=== PATIENT | male | born 1940 | race Caucasian/White ===

== ENCOUNTER 2017-04-06 18:37 | Inpatient (IN) | payer OTHER, BC ==
[~2017-04-06] VITALS: Ht 170.2 cm; Wt 85.0 kg
[2017-04-06 19:39] LABS: BASOPHIL % 0.3 % (0-2); PLATELET COUNT 151 x10^3mcL (130-400); RED CELL DISTRIBUTION WIDTH 13.9 % (11.5-14.5)
[2017-04-06 19:42] LABS: CALCIUM 8.7 mg/dL (8.5-10.1); CARBON DIOXIDE 25.3 mmol/L (21-32); CHLORIDE SERUM 106 mmol/L (98-107); CREATININE SERUM 1.2 mg/dL (0.7-1.3); GLUCOSE SERUM 130 mg/dL (74-106); POTASSIUM SERUM 3.6 mmol/L (3.5-5.1); SODIUM SERUM 145 mmol/L (136-145)
[2017-04-06 19:44] LABS: MAGNESIUM 2.1 mg/dL (1.8-2.4)
[2017-04-06 19:49] LABS: ALBUMIN 3.9 g/dL (3.4-5.0); ALKALINE PHOSPHATASE 57 U/L (46-116); ALT/SGPT 66 U/L (16-63); AST/SGOT 30 U/L (15-37); TOTAL PROTEIN, SERUM 6.4 g/dL (6.4-8.2)
[2017-04-06 20:48] LABS: UA SPECIFIC GRAVITY >=1.030 (1.005-1.035); microscopic required? YES; urine erythrocyte NEGATIVE (NEGATIVE)
[2017-04-06 20:57] LABS: AMPHETAMINE QUAL UR NONE DETECTED (NEG <=1000)
[2017-04-06] MEDS ORDERED: FLO4 PO (21:47)
[2017-04-06] MEDS ORDERED: SIMVASTATIN20 M1 PO (21:48)
[2017-04-06] MEDS ORDERED: FINASTERIDE5 M1 PO (21:48)
[2017-04-06] MEDS ORDERED: DITROPAN XL5 MG PO (21:48)
[2017-04-06] MEDS ORDERED: GOOD SENSE ASPI81 M3 PO (21:49)
[2017-04-06] MEDS ORDERED: NORCO 10-325 T1 EACH PO (21:49)
[2017-04-06 22:48] VITALS: BP 178/88
[2017-04-06 22:56] LABS: CHOLESTEROL/HDL RATIO 3.6; PHOSPHOROUS 2.8 mg/dL (2.5-4.9)
[2017-04-06 23:05] LABS: FREE T4 0.8 ng/dL (0.76-1.46); FREE THYROXINE INDEX 1.9 ug/dL (1.4-4.5); T3 TOTAL 0.72 ng/mL; T4(THYROXINE) 5.4 ug/dL (4.7-13.3)
[2017-04-06 23:10] VITALS: BP 189/94
[2017-04-07 02:48] VITALS: BP 152/76
[2017-04-07 06:32] VITALS: BP 145/80
[2017-04-07 07:47] LABS: BASOPHIL % 0.2 % (0-2); PLATELET COUNT 137 x10^3mcL (130-400); RED CELL DISTRIBUTION WIDTH 14.1 % (11.5-14.5)
[2017-04-07 08:42] VITALS: Ht 170.2 cm; Wt 85.0 kg
[2017-04-07 08:42] LABS: CALCIUM 8.3 mg/dL (8.5-10.1); CARBON DIOXIDE 28.6 mmol/L (21-32); CHLORIDE SERUM 107 mmol/L (98-107); CREATININE SERUM 0.9 mg/dL (0.7-1.3); GLUCOSE SERUM 104 mg/dL (74-106); POTASSIUM SERUM 3.8 mmol/L (3.5-5.1); SODIUM SERUM 144 mmol/L (136-145)
[2017-04-07 09:29] VITALS: BP 157/86
[2017-04-07 16:52] VITALS: BP 138/77
[2017-04-07 21:46] VITALS: BP 118/79
[2017-04-08 06:20] LABS: BASOPHIL % 0.9 % (0-2)
[2017-04-08 06:22] VITALS: BP 118/68
[2017-04-08 06:37] LABS: CALCIUM 8.2 mg/dL (8.5-10.1); CARBON DIOXIDE 30.8 mmol/L (21-32); CHLORIDE SERUM 107 mmol/L (98-107); CREATININE SERUM 0.9 mg/dL (0.7-1.3); GLUCOSE SERUM 102 mg/dL (74-106); PHOSPHOROUS 2.9 mg/dL (2.5-4.9); POTASSIUM SERUM 4.4 mmol/L (3.5-5.1); SODIUM SERUM 144 mmol/L (136-145)
[2017-04-08 10:55] VITALS: BP 141/84
[2017-04-08 11:12] LABS: PLATELET COUNT 100 x10^3mcL (130-400)
[2017-04-08] MEDS ORDERED: DEPAKOTE ER500 MG PO (13:17)
[2017-04-08] MEDS ORDERED: DEPAKOTE500 MG PO (13:30)
[2017-04-08 14:29] VITALS: BP 146/84
[2017-04-08 15:58] VITALS: BP 146/84
== END 2017-04-08 17:36 | DRG 100 ==
LOC: ED 18:37 → DU 21:28 → MU 04-07 11:00
PROVIDERS: Emergency Medicine; Family Medicine
DX: G40.909 Epilepsy, unspecified, not intractable, without status epilepticus (principal); N17.0 Acute kidney failure with tubular necrosis; S00.532A Contusion of oral cavity, initial encounter; I10 Essential (primary) hypertension; G62.9 Polyneuropathy, unspecified; R32 Unspecified urinary incontinence; E78.2 Mixed hyperlipidemia; Z68.31 Body mass index [BMI] 31.0-31.9, adult; Z87.891 Personal history of nicotine dependence; Z86.73 Personal history of transient ischemic attack (TIA), and cerebral infarction without residual deficits; Z91.81 History of falling; W50.3XXA Accidental bite by another person, initial encounter; Y92.009 Unspecified place in unspecified non-institutional (private) residence as the place of occurrence of the external cause
CPT/HCPCS: 83880; 84439; 97110-GP; 97116-GP; 97530-GP; G0480; J0360; J1956; J2060; J2310; J2405; J7030; Q0092

== ENCOUNTER 2017-06-13 04:57 | Inpatient (IN) | payer OTHER, BC ==
[~2017-06-13] VITALS: Ht 170.2 cm; Wt 90.3 kg
[~2017-06-13 04:57] MED LIST: DEPAKOTE ER500 MG PO; DEPAKOTE500 MG PO; DITROPAN XL5 MG PO; FINASTERIDE5 M1 PO; FLO4 PO; GOOD SENSE ASPI81 M3 PO; NORCO 10-325 T1 EACH PO; SIMVASTATIN20 M1 PO
[2017-06-13 05:05] VITALS: Ht 170.2 cm; Wt 90.3 kg
[2017-06-13 06:16] LABS: CALCIUM 8.1 mg/dL (8.5-10.1); CARBON DIOXIDE 30.5 mmol/L (21-32); CHLORIDE SERUM 105 mmol/L (98-107); CREATININE SERUM 0.9 mg/dL (0.7-1.3); GLUCOSE SERUM 101 mg/dL (74-106); POTASSIUM SERUM 4.2 mmol/L (3.5-5.1); SODIUM SERUM 141 mmol/L (136-145)
[2017-06-13 06:19] LABS: BASOPHIL % 0.2 % (0-2); RED CELL DISTRIBUTION WIDTH 13.7 % (11.5-14.5)
[2017-06-13 06:20] LABS: ALKALINE PHOSPHATASE 65 U/L (46-116); ALT/SGPT 39 U/L (16-63); AST/SGOT 20 U/L (15-37); BILIRUBIN TOTAL 0.79 mg/dL (0.20-1.00); PLATELET COUNT 129 x10^3mcL (130-400)
[2017-06-13 06:20] LABS: UA SPECIFIC GRAVITY 1.015 (1.005-1.035); microscopic required? YES; urine erythrocyte TRACE (NEGATIVE)
[2017-06-13 06:23] LABS: ALBUMIN 3.3 g/dL (3.4-5.0)
[2017-06-13] MEDS ORDERED: LISINOPRIL10 MG PO (08:15)
[2017-06-13] MEDS ORDERED: SIMVASTATIN20 M1 PO (08:16)
[2017-06-13] MEDS ORDERED: EPZICOM1 TAB (08:18)
[2017-06-13] MEDS ORDERED: DEPAKOTE500 MG PO (08:18)
[2017-06-13 09:36] LABS: MAGNESIUM 2.1 mg/dL (1.8-2.4); PHOSPHOROUS 2.7 mg/dL (2.5-4.9); T3 TOTAL 0.93 ng/mL
[2017-06-13 09:37] LABS: CHOLESTEROL/HDL RATIO 3.1
[2017-06-13 09:44] LABS: FREE T4 0.8 ng/dL (0.76-1.46); FREE THYROXINE INDEX 1.6 ug/dL (1.4-4.5); T4(THYROXINE) 4.7 ug/dL (4.7-13.3)
[2017-06-13 10:00] VITALS: BP 158/92
[2017-06-13 13:17] VITALS: BP 155/79
[2017-06-13 13:40] VITALS: BP 155/79
[2017-06-13 16:54] VITALS: BP 144/73
[2017-06-13 22:03] VITALS: BP 150/83
[2017-06-14 05:07] VITALS: BP 160/64
[2017-06-14 06:29] LABS: BASOPHIL % 0.1 % (0-2); RED CELL DISTRIBUTION WIDTH 13.7 % (11.5-14.5)
[2017-06-14 07:01] LABS: PLATELET COUNT 117 x10^3mcL (130-400)
[2017-06-14 07:07] LABS: CALCIUM 7.8 mg/dL (8.5-10.1); CHLORIDE SERUM 108 mmol/L (98-107); CREATININE SERUM 0.8 mg/dL (0.7-1.3); GLUCOSE SERUM 95 mg/dL (74-106); PHOSPHOROUS 2.8 mg/dL (2.5-4.9); POTASSIUM SERUM 3.7 mmol/L (3.5-5.1); SODIUM SERUM 142 mmol/L (136-145)
[2017-06-14 08:10] VITALS: BP 153/82
[2017-06-14 11:59] VITALS: BP 155/86
[2017-06-14 17:18] VITALS: BP 150/81
[2017-06-14 21:05] VITALS: BP 129/87
[2017-06-15 06:23] VITALS: BP 131/86
[2017-06-15 06:42] LABS: CARBON DIOXIDE 30.1 mmol/L (21-32); CHLORIDE SERUM 105 mmol/L (98-107); CREATININE SERUM 0.7 mg/dL (0.7-1.3); GLUCOSE SERUM 92 mg/dL (74-106); POTASSIUM SERUM 3.7 mmol/L (3.5-5.1); SODIUM SERUM 140 mmol/L (136-145)
[2017-06-15 06:47] LABS: BASOPHIL % 0.6 % (0-2); PLATELET COUNT 137 x10^3mcL (130-400); RED CELL DISTRIBUTION WIDTH 13.7 % (11.5-14.5)
[2017-06-15 08:30] VITALS: BP 171/84
[2017-06-15 12:17] VITALS: BP 151/85
[2017-06-15] MEDS ORDERED: [UNRECOGNIZED DRUG - CODE] IV ×2 (14:20→14:31)
[2017-06-15] MEDS ORDERED: LAC PO (14:21)
[2017-06-15] MEDS ORDERED: FLA500I IV ×2 (14:21→14:32)
[2017-06-15] MEDS ORDERED: LEXAPRO10 MG PO (14:30)
[2017-06-15] MEDS ORDERED: OSCD PO (14:34)
[2017-06-15 15:10] VITALS: BP 151/85
== END 2017-06-15 15:58 | DRG 74 ==
LOC: ED 04:57 → MU 08:12 → DU 08:12 → MU 06-15 06:12
PROVIDERS: Emergency Medicine; Family Medicine
DX: G90.8 Other disorders of autonomic nervous system (principal); K57.32 Diverticulitis of large intestine without perforation or abscess without bleeding; E44.1 Mild protein-calorie malnutrition; I10 Essential (primary) hypertension; E78.5 Hyperlipidemia, unspecified; G40.909 Epilepsy, unspecified, not intractable, without status epilepticus; G89.29 Other chronic pain; M54.9 Dorsalgia, unspecified; R73.03 Prediabetes; R31.9 Hematuria, unspecified; D69.6 Thrombocytopenia, unspecified; E83.51 Hypocalcemia; N40.0 Benign prostatic hyperplasia without lower urinary tract symptoms; E87.8 Other disorders of electrolyte and fluid balance, not elsewhere classified; I08.3 Combined rheumatic disorders of mitral, aortic and tricuspid valves; E66.9 Obesity, unspecified; Z68.31 Body mass index [BMI] 31.0-31.9, adult; Z86.73 Personal history of transient ischemic attack (TIA), and cerebral infarction without residual deficits; Z90.49 Acquired absence of other specified parts of digestive tract
CPT/HCPCS: 83880; 84439; 94150; 97110-GP; 97116-GP; 97530-GP; J0744; J1885; J2270; J3490; J7030; Q0092

== ENCOUNTER 2018-03-20 13:09 | Emergency (ER) | payer OTHER, BC ==
[~2018-03-20] VITALS: Ht 167.6 cm; Wt 86.2 kg
[~2018-03-20 13:09] MED LIST changes: +EPZICOM1 TAB; +FLA500I IV; +LAC PO; +LEXAPRO10 MG PO; +LISINOPRIL10 MG PO; +OSCD PO; +[UNRECOGNIZED DRUG - CODE] IV
[2018-03-20 13:14] VITALS: Ht 167.6 cm; Wt 86.2 kg
[2018-03-20 14:12] VITALS: BP 146/90
== END 2018-03-20 14:12 | disposition home or self-care (01) ==
LOC: ED 13:09
DX: M70.52 Other bursitis of knee, left knee (principal); I10 Essential (primary) hypertension; Z86.73 Personal history of transient ischemic attack (TIA), and cerebral infarction without residual deficits; Y93.89 Activity, other specified

== ENCOUNTER 2018-04-17 09:36 | Emergency (ER) | payer OTHER, BC ==
[~2018-04-17] VITALS: Ht 170.2 cm; Wt 90.7 kg
[2018-04-17 09:46] VITALS: Ht 170.2 cm; Wt 90.7 kg
[2018-04-17 10:41] LABS: BASOPHIL % 0.3 % (0-2); PLATELET COUNT 134 x10^3mcL (130-400); RED CELL DISTRIBUTION WIDTH 13.9 % (11.5-14.5)
[2018-04-17 10:47] LABS: CALCIUM 8.4 mg/dL (8.5-10.1); CARBON DIOXIDE 29.5 mmol/L (21-32); CHLORIDE SERUM 105 mmol/L (98-107); CREATININE SERUM 0.8 mg/dL (0.7-1.3); GLUCOSE SERUM 102 mg/dL (74-106); POTASSIUM SERUM 3.8 mmol/L (3.5-5.1); SODIUM SERUM 143 mmol/L (136-145)
[2018-04-17 10:52] LABS: ALBUMIN 3.2 g/dL (3.4-5.0); ALKALINE PHOSPHATASE 58 U/L (46-116); ALT/SGPT 52 U/L (16-63); AST/SGOT 22 U/L (15-37); BILIRUBIN TOTAL 0.91 mg/dL (0.20-1.00); TOTAL PROTEIN, SERUM 6.1 g/dL (6.4-8.2)
[2018-04-17 11:02] LABS: microscopic required? NO
[2018-04-17 11:18] LABS: urine erythrocyte NEGATIVE (NEGATIVE)
[2018-04-17 12:55] VITALS: BP 140/71
== END 2018-04-17 12:55 | disposition home or self-care (01) ==
LOC: ED 09:36
PROVIDERS: Emergency Medicine
DX: R53.1 Weakness (principal); I10 Essential (primary) hypertension; Z86.73 Personal history of transient ischemic attack (TIA), and cerebral infarction without residual deficits; Z88.8 Allergy status to other drugs, medicaments and biological substances
CPT/HCPCS: 36415

== ENCOUNTER 2019-01-23 15:19 | Inpatient (IN) | payer OTHER, BC ==
[~2019-01-23] VITALS: Ht 167.6 cm; Wt 86.0 kg
[2019-01-23 15:36] VITALS: Ht 167.6 cm; Wt 86.0 kg
[2019-01-23 17:19] LABS: BASOPHIL % 0.2 % (0-2); PLATELET COUNT 165 x10^3mcL (130-400)
[2019-01-23 17:28] LABS: CALCIUM 9.2 mg/dL (8.5-10.1); CARBON DIOXIDE 33.4 mmol/L (21-32); CHLORIDE SERUM 105 mmol/L (98-107); CREATININE SERUM 1.2 mg/dL (0.7-1.3); GLUCOSE SERUM 127 mg/dL (74-106); POTASSIUM SERUM 4.1 mmol/L (3.5-5.1); SODIUM SERUM 145 mmol/L (136-145)
[2019-01-23 17:33] LABS: ALBUMIN 3.7 g/dL (3.4-5.0); ALKALINE PHOSPHATASE 71 U/L (46-116); ALT/SGPT 40 U/L (16-63); AST/SGOT 18 U/L (15-37); BILIRUBIN TOTAL 0.9 mg/dL (0.20-1.00); TOTAL PROTEIN, SERUM 6.8 g/dL (6.4-8.2)
--- NOTE | 2019-01-23 18:52 | NUR ---
PT CAME TO ER FROM URGENT CARE TODAY FOR RECTAL BLEEDING. PT REPORTING SHARP PAIN GENERALIZED IN ABDOMEN SINCE LAST NIGHT. PER PT "I GET THE URGE TO CRAP BUT WHEN I SIT DOWN ITS JUST BRIGHT RED BLOOD." PT WAS TOLD AT URGENT CARE AFTER DIGITAL RECTAL EXAM, TO COME TO ER FOR FURTHER CARE. PT IS ALERT AND ORIENTED, PAIN IN ABD IS 7/10, NO VOMITING OR FEVER. PT BREATHING IS UNLABORED AND EVEN AND PT AWAITING MSE. PT DENIES URINARY SYMTPOMS AND DIZZINESS AT THIS TIE.
[2019-01-23 18:58] LABS: microscopic required? NO
[2019-01-23 19:08] LABS: UA SPECIFIC GRAVITY >=1.030 (1.005-1.035); urine erythrocyte NEGATIVE (NEGATIVE)
--- NOTE | 2019-01-23 19:18 | NUR ---
PT CARE AND REPORT GIVEN TO NEEL BENJAMIN. ALL QUESTIONS ADDRESSED AT THIS TIME.
--- NOTE | 2019-01-23 19:21 | NUR ---
RECEIVED PATIENT FROM SOURAV LOCKE. PT AAOX4. RESP E/U. NAD NOTED.
[2019-01-23 20:01] LABS: CHOLESTEROL/HDL RATIO 3.7
[2019-01-23 20:13] LABS: T3 TOTAL 0.86 ng/mL
--- NOTE | 2019-01-23 20:14 | NUR ---
LAB AT BEDSIDE.
[2019-01-23 20:41] LABS: FREE T4 0.81 ng/dL (0.76-1.46); T4(THYROXINE) 6.5 ug/dL (4.7-13.3)
--- NOTE | 2019-01-23 20:52 | NUR ---
PATIENT TAKEN TO CT.
--- NOTE | 2019-01-23 21:32 | NUR ---
PT O2 SAT 88% PLACED ON 2L NC, O2 SAT 95%.
--- NOTE | 2019-01-23 21:48 | NUR ---
, TIMOTHY TO GO HOME AT THIS TIME. LEFT CONTACT #. WILL NOTIFY OF PATIENTS DC OR ADMISSION.
--- NOTE | 2019-01-23 22:15 | NUR ---
SPOKE WITH LABORER YARD. REQUESTED RESULTS FOR CT, STS NOT AVAILABLE. LABORER YARD TO CONTACT RADIOLOGIST FOR RESULTS OF EXAM. DR MICHAEL COONEY.
--- NOTE | 2019-01-23 22:26 | NUR ---
PT DENIES ABD PAIN AT REST. STS PAIN IS ONLY WHEN APPLYING PRESSURE TO BILATERAL MID ABD. PT IN POSITION OF COMFORT. STS ALL NEEDS ATTENDED TO AT THIS TIME. WILL CONTINUE TO MONITOR.
--- NOTE | 2019-01-23 23:56 | NUR ---
LAB AT BEDSIDE.
--- NOTE | 2019-01-24 00:40 | NUR ---
REPORT GIVEN TO SOURAV BROWN.
--- NOTE | 2019-01-24 00:51 | NUR ---
PT ARRIVED ON THE FLOOR FROM ER VIA [facility] ACCOMPANIED BY NURSE. PT IS ADMITTED W/ A C/O ABDL PAIN AND BLOODY BM. HE IS ALERT,ORIENTED X4. LUNGS CTA. NO SOB NOTED. BOWEL SOUNDS ACTIVE. NO C/O N/V. NO C/O ABDL PAIN AT THIS TIME. NO C/O DYSURIA. W/ HL TO LT WRIST. PT ORIENTED TO ROOM AND INSTRUCTED ON THE USE OF CALL LIGHT.
[2019-01-24 01:33] VITALS: BP 147/73
--- NOTE | 2019-01-24 05:03 | NUR ---
PT APPEARS TO BE SLEEPING COMFORTABLY. HE HAS NO C/O PAIN AT THIS TIME. NO BOWEL MOVEMENT . NO EPISODE OF BLEEDING. NO NAUSEA OR VOMITING OCCURED. IVF NS INFUSING WELL AT 100 CC/HR VIA LT WRIST.
[2019-01-24 05:46] VITALS: BP 153/75
--- NOTE | 2019-01-24 07:15 | NUR ---
RECEIVED BEDSIDE REPORT FROM CHEMICAL LAB SUPERVISOR NURSE AT THIS TIME. PATIENT RESTING COMFORTABLY IN BED. NO APPARENT DISTRESS OR DISCOMFORT NOTED. BREAHTING EVEN AND UNLABORED. NO RESPIRATORY DISTRESS OR DISCOMFORT NOTED. PATIENT DENIES CHEST PAIN/PRESSURE AT THIS TIME. IV PATENT AND INTACT. ALL QUESTIONS AND CONCERNS ADDRESSED. ALL NEEDS ATTENDED TO. WILL CONTINUE TO MONITOR
[2019-01-24 08:08] LABS: BASOPHIL % 0.2 % (0-2); PLATELET COUNT 138 x10^3mcL (130-400)
[2019-01-24 08:44] VITALS: BP 141/71
[2019-01-24 09:35] LABS: CALCIUM 8.7 mg/dL (8.5-10.1); CARBON DIOXIDE 31.9 mmol/L (21-32); CHLORIDE SERUM 105 mmol/L (98-107); GLUCOSE SERUM 97 mg/dL (74-106); MAGNESIUM 1.8 mg/dL (1.8-2.4); PHOSPHOROUS 2.9 mg/dL (2.5-4.9); POTASSIUM SERUM 3.7 mmol/L (3.5-5.1); SODIUM SERUM 142 mmol/L (136-145)
--- NOTE | 2019-01-24 10:00 | NUR ---
ALL MORNING MEDICATIONS ADMINISTERED. PATIENT TOLERATED WELL. NO APPARENT ADVERSE EFFECTS NOTED. ALL NEEDS ATTENDED TO. WILL CONTINUE TO MONITOR
--- NOTE | 2019-01-24 11:05 | NUR ---
PATIENT C/O GENERALIZED PAIN AT THIS TIME. PATIENT MEDICATED WITH NORCO PO PRN. PATIENT TOLERATED WELL. NO APPARENT ADVERSE EFFECTS NOTED. ALL NEEDS ATTENDED TO. WILL CONTINUE TO MONITOR
[2019-01-24 12:20] VITALS: BP 143/72
--- NOTE | 2019-01-24 12:30 | NUR ---
SPOKE TO PATIENT AND FAMILY MEMBER ABOUT POC AT THIS TIME. EXPLAINED CONTINUATION OF ANTIBIOTIC THERAPY AND NPO STATUS. PATIENT AND FAMILY VERBALIZE UNDERSTANDING. ALL QUESTIONS AND CONCERNS ADDRESSED.ALL NEEDS ATTENDED TO. WILL CONTINUE TO MONITOR
[2019-01-24 13:07] LABS: BASOPHIL % 0.6 % (0-2); PLATELET COUNT 137 x10^3mcL (130-400); RED CELL DISTRIBUTION WIDTH 13.9 % (11.5-14.5)
--- NOTE | 2019-01-24 15:30 | NUR ---
AT BEDSIDE. NO APPARENT DISTRESS NOTED. ALL NEEDS ATTENDED TO. WILL CONTINUE TO MONITOR
[2019-01-24 16:21] VITALS: BP 140/71
--- NOTE | 2019-01-24 18:45 | NUR ---
PATIENT RESTING COMFORTABLY IN BED AT THIS TIME. NO APPARENT DISTRESS OR DISCOMFORT NOTED. IV PATENT AND INTACT. ALL QUESTIONS AND CONCERNS ADDRESSED. ALL NEEDS ATTENDED TO. SAFETY PRECAUTIONS MAINTAINED. WILL ENDORSE ALL CARE TO HEAD PASTRY CHEF NURSE
--- NOTE | 2019-01-24 21:14 | NUR ---
Awake and verbally responsive. No respiratory distress noted on room air. Denies pain. Denies n/v. Left sided weakness HX CVA. No active bleeding noted. Will cont.to monitor. Call light within reach.
[2019-01-24 21:48] VITALS: BP 159/77
--- NOTE | 2019-01-25 04:07 | NUR ---
Afebrile. No significant change in condition noted. Denies n/v. No active bleeding noted. Cont.on IV levaquin, flagyl. Ambulated. In no apparent distress.
[2019-01-25 05:06] VITALS: BP 150/92
[2019-01-25 06:54] LABS: BASOPHIL % 0.3 % (0-2); PLATELET COUNT 137 x10^3mcL (130-400); RED CELL DISTRIBUTION WIDTH 13.5 % (11.5-14.5)
[2019-01-25 07:06] LABS: CALCIUM 8.3 mg/dL (8.5-10.1); CARBON DIOXIDE 30.2 mmol/L (21-32); CHLORIDE SERUM 104 mmol/L (98-107); CREATININE SERUM 0.9 mg/dL (0.7-1.3); GLUCOSE SERUM 91 mg/dL (74-106); MAGNESIUM 1.8 mg/dL (1.8-2.4); PHOSPHOROUS 2.6 mg/dL (2.5-4.9); POTASSIUM SERUM 3.8 mmol/L (3.5-5.1); SODIUM SERUM 140 mmol/L (136-145)
[2019-01-25 07:13] VITALS: BP 155/84
--- NOTE | 2019-01-25 07:15 | NUR ---
RECEIVED PT FROM RESEARCH ANALYST. PT SLEEPING BUT AROUSABLE. PT A/OX4. PT ON ROOM AIR WITH NO RESP DISTRESS NOTED. IV ACCESS LEFT WRIST INFUSING NS AT 100ML/HR. PERIPHERAL PULSES PALPABLE, NO EDEMA NOTED. ACTIVE BS NOTED. PT REPORTS PAIN WHEN PUSHING ON STOMACH. PT VOIDS IN URINAL WITH VINCE URINE NOTED. PT NOTED TO HAVE LEFT SIDED WEAKNESS, USES FWW TO AMBULATE. BED LIGHT ON. SAFETY MEASURES IN PLACE, BED LOW AND LOCKED. CALL LIGHT WITHIN REACH.
--- NOTE | 2019-01-25 09:45 | NUR ---
DUE MEDICATIONS ADMINISTERED ORDERED. PT TOLERATED WELL. PT ABLE TO EAT CLEAR LIQUID DIET AT THIS TIME. NO ACUTE DISTRESS OR DISCOMFORT NOTED AT THIS TIME. WILL CONTINUE TO MONITOR.
--- NOTE | 2019-01-25 12:35 | NUR ---
IV TO LEFT WRIST INFILTRATED. IV REMOVED WITH CATHETER INTACT. NEW IV PLACED IN RIGHT HAND 22G INFUSING WELL. PT TOLERATED WELL.
--- NOTE | 2019-01-25 13:51 | NUR ---
DUE ANTIBIOTIC ADMINISTERD AT THIS TIME. PT WITH NO ACUTE DISTRESS OR DISCOMFORT. SAFETY MAINTAINED.
--- NOTE | 2019-01-25 17:19 | NUR ---
PT OFF THE FLOOR TO GET CT ANGIOGRAM OF ABDOMEN/PELVIS
--- NOTE | 2019-01-25 18:13 | NUR ---
PT STABLE AT THIS TIME. ALL NEEDS TENDED TO THROUGHOUT SHIFT. WILL CONTINUE TO MONITOR AND ENDORSE CARE TO TOOL DESIGN DRAFTSPERSON. SAFETY MEASURES MAINTAINED.
--- NOTE | 2019-01-25 19:25 | NUR ---
RECEIVED PT RESTING IN BED, NO ACUTE DISTRESS NOTED. PT AOX4, DENIES BRUNER/DIZZINESS. HX OF SZ, PRECAUTIONS IN PLACE. MEDSURG PT, DENIES CP. PULSES PALPABLE BILAT, DENIES NUMBNESS/TINGLING IN FEET. TRACE EDEMA BLE. SCDS' ON . RESP EVEN AND UNLABORED ON RA, DENIES SOB. BOWEL SOUNDS HYPERACTIVE, ABD SLIGHTLY FIRM, ROUND, TENDERNESS W/ PALPATION IN THE LLQ. DENIES THE NEED FOR PAIN MEDICATION. REPORTS LAST BM= 01/24 WATERY WITH FLAKES ON BLOOD. PT VOIDS WITH URINAL, HX OF BPH. DENIES DYSURIA. PT HX OF CVA W/ LEFT SIDED RESIDUAL WEAKNESS, AMB W/ FWW AT BASELINE. SKIN INTACT. PT DENIES PAIN AT THIS TIME. IV SITE TO THE RFA 20G, NS @ 50ML/HR. NO REDNESS, SWELLING OR PAIN NOTED. PT ON LEVAQUIN AND FLAGYL, ALL COMFORT AND SAFETY MEASURES PROVIDED FOR, CALL LIGHT WITHIN REACH, BED IN LOWEST POSITION, WILL CONTINUE TO MONITOR.
[2019-01-25 19:30] VITALS: BP 150/77
[2019-01-25 20:26] VITALS: BP 146/78
--- NOTE | 2019-01-25 23:05 | NUR ---
UPON ASSESSMENT OF PT, PT SEEN RESTING INBED WITH EYES CLOSED, PT HAD REMOVED SCD'S, ALL PERSONAL BELONGINGS WITHIN REACH, BED IN LOWEST POSITION, CLUTTER FREE ENVIRONMENT, CALL LIGHT WITHIN REACH, WILL CONTINUE TO MONITOR.
--- NOTE | 2019-01-26 05:10 | NUR ---
PT RESTED IN INTERVALS DURING SHIFT, NO ACUTE CHANGES OCCURRING OVERNIGHT. PT DENIES BLOOD IN STOOL DURING SHIFT, ONE EPISODE OF VOMITING DURING EVENING AND ZOFRAN WAS GIVEN WITH GOOD RESULTS. PT ABLE TO MAKE NEEDS KNOWN, IV SITE REMAINS PATENT TO RFA, NS @ 50ML/HR. NO REDNESS, SWELLING OR PAIN NOTED. ALL COMFORT AND SAFETY MEASURES PROVIDED FOR, CALL LIGHT WITHIN REACH, BED IN LOWEST POSITION, WILL CONTINUE TO MONITOR.
[2019-01-26 05:54] VITALS: BP 112/73
--- NOTE | 2019-01-26 07:30 | NUR ---
PT IS AAOX4. LUNG SOUNDS CTA. ON R/A. NORMAL S1S2 NOTED. ABDOMEN ROUND, NONTENDER, NONDISTENDED. PT ON CLEAR LIQUID DIET AND HAS C/O CONSTIPATION. DENIES N/V AT THIS TIME. BOWEL SOUNDS ACTIVE X4 QUADS. IVF RUNNING TO RFA. SITE WNL. PT DENIES PAIN AND DISCOMFORT AT THIS TIME. CALL LIGHT WITHIN REACH.
--- NOTE | 2019-01-26 07:30 | NUR ---
ENDORSED ALL CARE TO DAYSHIFT NURSE, ALL QUESTIONS AND CONCERNS ADRESSED, CALL LIGHT WITHIN REACH, BED IN LOWEST POSITION. ALL COMFORT AND SAFETY MEASURES PROVIDED FOR.
[2019-01-26 08:39] VITALS: BP 153/79
--- NOTE | 2019-01-26 09:30 | NUR ---
SCHEDULED MEDS GIVEN AND TOLERATED WELL. B/P 153/79 (103), HR 66. RESP EVEN AND UNLABORED. NO DISTRESS NOTED. PT DENIES PAIN AND DISCOMFORT. CALL LIGHT WITHIN REACH.
--- NOTE | 2019-01-26 10:59 | NUR ---
FLEET ENEMA GIVEN. PT HAS LARGE HARD B.M.. SCHEDULED MEDS GIVEN AND TOLERATED WELL. PT DENIES PAIN. PT CHANGED AND PERINEAL CARE GIVEN. CALL LIGHT WITHIN REACH.
[2019-01-26 11:02] VITALS: BP 153/79
--- NOTE | 2019-01-26 11:15 | NUR ---
SCHEDULED MED GIVEN AND TOLERATED WELL. RESP EVEN AND UNLABORED. NO DISTRESS NOTED. PT DENIES N/V. DENIES PAIN. CALL LIGHT WITHIN REACH.
--- NOTE | 2019-01-26 12:13 | NUR ---
PT IS AAOX4. LUNG SOUNDS CTA. ON R/A. NORMAL S1S2 NOTED. ABDOMEN ROUND, NONTENDER, NONDISTENDED. PT ON CLEAR LIQUID DIET AND HAS C/O CONSTIPATION. DENIES N/V AT THIS TIME. BOWEL SOUNDS ACTIVE X4 QUADS. IVF RUNNING TO RFA. SITE WNL. PT DENIES PAIN AND DISCOMFORT AT THIS TIME. CALL LIGTH WITHIN REACH.
[2019-01-26 12:16] VITALS: BP 158/82
--- NOTE | 2019-01-26 13:30 | NUR ---
PT SITTING UP AT BEDSIDE VISITING WITH . RESP EVEN AND UNLABORED. SCHEDULE MED GIVEN AND TOLERATED WELL. DENIES PAIN. CALL LIGHT WITHIN REACH.
--- NOTE | 2019-01-26 14:30 | NUR ---
PT DISCHARGED TO HOME WITH NO DISTRESS. DISCHARGE INSTRUCTIONS REVIEWED. ALL FORMS SIGNED. ALL QUESTIONS AND CONCERNS ADDRESSED. PT INSTRUCTED TO CRIMINOLOGY TEACHER NEW PRESCRIPTIONS AT HIS PREFERRED PHARMACY. VS: T 98.2, HR 64, RR 24, B/P 158/82, O2 SAT 91% ON R/A. PT DENIES PAIN UPON DISCHARGE. IV CATH REMOVED FROM RFA, SITE WNL. NO S/S OF INFECTION OR INFILTRATION. SITE COVERED WITH GAUZE AND BANDAID. PT DENIES PAIN AT D/C. ALL PERSONAL BELONGINGS TAKEN HOME.
== END 2019-01-26 14:29 | disposition home or self-care (01) | DRG 377 ==
LOC: ED 15:19 → DU 23:45 → MU 23:45 → DU 01-24 00:51 → MU 01-24 11:00
PROVIDERS: Specialist; ADMIT Internal Medicine
DX: K57.33 Diverticulitis of large intestine without perforation or abscess with bleeding (principal); N17.0 Acute kidney failure with tubular necrosis; K55.9 Vascular disorder of intestine, unspecified; G40.909 Epilepsy, unspecified, not intractable, without status epilepticus; S06.9X0S Unspecified intracranial injury without loss of consciousness, sequela; M54.5 Low back pain; G89.29 Other chronic pain; E78.5 Hyperlipidemia, unspecified; F32.9 Major depressive disorder, single episode, unspecified; I10 Essential (primary) hypertension; N40.0 Benign prostatic hyperplasia without lower urinary tract symptoms; E66.9 Obesity, unspecified; Z87.820 Personal history of traumatic brain injury; Z68.35 Body mass index [BMI] 35.0-35.9, adult; Z79.82 Long term (current) use of aspirin; Z87.891 Personal history of nicotine dependence; Z86.73 Personal history of transient ischemic attack (TIA), and cerebral infarction without residual deficits; Z98.1 Arthrodesis status
CPT/HCPCS: 84439; 90658; G0378; J1956; J2405; J3010; J3490; J7030; Q0092; Q9967